=== PATIENT | female | born 1960 | race Caucasian/White ===

== ENCOUNTER 2022-05-09 16:12 | Emergency (ER) | payer OTHER ==
[2022-05-09 16:26] VITALS: TEMP 98.1
[2022-05-09] MEDS ORDERED: ASPIRIN 81 MG PO STA (16:38)
[2022-05-09 17:00] LABS: Basophils % (A) 1 %; Eosinophils # (A) 0.2 k/uL (0-0.7); Eosinophils % (A) 3 %; HGB 13.9 gm/dL (11.4-16.0); Lymphocytes # (A) 1.9 k/uL (1.0-4.8); Lymphocytes % (A) 27 %; MCH 30.4 pg (25.0-35.0); MCHC 32.4 g/dL (31.0-37.0); Mean Platelet Volume 7.7; Monocytes # (A) 0.3 k/uL (0-1.0); Monocytes % (A) 4 %; Neutrophils # (A) 4.4 k/uL (1.3-7.7); Neutrophils % (A) 63 %; Platelet Count 181 k/uL (150-450); RBC 4.57 m/uL (3.80-5.40); RDW 13.5 % (11.5-15.5); WBC 6.9 k/uL (3.8-10.6)
[2022-05-09 17:08] LABS: INR 1.2 (<1.2); Partial Thromboplastin Time 26.6 sec (22.0-30.0); Prothrombin Time 12.3 sec (9.0-12.0)
[2022-05-09 17:13] VITALS: PULSE 64
--- NOTE | 2022-05-09 17:14 | ED ---
General Adult HPI - General Chief complaint: Chest Pain Stated complaint: pain under rt breast Time Seen by Provider: 05/09/22 16:38 Source: patient, family, RN notes reviewed Mode of arrival: ambulatory Limitations: no limitations - History of Present Illness Initial comments: Patient is a pleasant 62-year-old female presenting to the emergency department with concern with discomfort under her right chest. Discomfort is mild. Discomfort does increase with deep breaths. No dyspnea. Discomfort is somewhat sharp. No history of similar symptoms previously. Patient recently was diagnosed with venous thrombosis of her right leg. Patient states she was told it was near a deep vein so they did start Xarelto on her. Patient has been on this now for 4 days, 15 mg twice daily. Discomfort is unchanged right upper leg. No calf pain. No abdominal pain. - Related Data Allergies Allergy/AdvReac Type Severity Reaction Status Date / Time No Known Allergies Allergy Verified 05/09/22 16:26 Review of Systems ROS Statement: Those systems with pertinent positive or pertinent negative responses have been documented in the HPI. ROS Other: All systems not noted in ROS Statement are negative. Constitutional: Denies: fever Eyes: Denies: eye pain ENT: Denies: ear pain Respiratory: Denies: cough Cardiovascular: Reports: as per HPI, chest pain Endocrine: Denies: fatigue Gastrointestinal: Denies: abdominal pain Genitourinary: Denies: dysuria Musculoskeletal: Denies: back pain Skin: Denies: rash Neurological: Denies: weakness Past Medical History Past Medical History: Deep Vein Thrombosis (DVT) History of Any Multi-Drug Resistant Organisms: None Reported Past Surgical History: Hysterectomy, Orthopedic Surgery Past Psychological History: No Psychological Hx Reported Smoking Status: Never smoker Past Alcohol Use History: Daily Past Drug Use History: None Reported General Exam Limitations: no limitations General appearance: alert, in no apparent distress Head exam: Present: normocephalic Eye exam: Present: normal appearance Neck exam: Present: normal inspection Respiratory exam: Present: normal lung sounds bilaterally, chest wall tenderness (Mild discomfort right chest wall under the breast) Cardiovascular Exam: Present: regular rate, normal rhythm Expanded Peripheral pulses: 2+: Dorsalis Pedis (R), Dorsalis Pedis (L) GI/Abdominal exam: Present: soft. Absent: tenderness Extremities exam: Present: other (Mild tenderness right medial and posterior thigh). Absent: pedal edema, calf tenderness Neurological exam: Present: alert Psychiatric exam: Present: normal affect, normal mood Skin exam: Present: normal color Course Vital Signs 05/09/22 05/09/22 16:23 17:12 Temperature 98.1 F Pulse Rate 68 64 Respiratory 18 18 Rate Blood Pressure 148/92 122/67 O2 Sat by Pulse 96 96 Oximetry EKG Findings - EKG Comments: EKG Findings:: Sinus rhythm 65. MO 164. QRS 160. QT 410. QTc 42. Normal axis. Right bundle branch block. Nonspecific T waves. Medical Decision Making - Medical Decision Making Patient reevaluated and now symptom-free. Patient updated on results. Discussion had with patient regarding repeat cardiac testing however patient refuses stating she is not worried about any cardiac problems. Patient symptoms are not consistent with cardiac problems and agreed patient can be safely discharged with follow-up with her doctor. She is advised to continue her Xarelto. - Lab Data Result diagrams: 05/09/22 16:55 05/09/22 16:55 Lab Results 05/09/22 05/09/22 05/09/22 Range/Units 16:55 16:55 16:55 WBC 6.9 (3.8-10.6) k/uL RBC 4.57 (3.80-5.40) m/uL Hgb 13.9 (11.4-16.0) gm/dL Hct 43.0 (34.0-46.0) % MCV 94.0 (80.0-100.0) fL MCH 30.4 (25.0-35.0) pg MCHC 32.4 (31.0-37.0) g/dL RDW 13.5 (11.5-15.5) % Plt Count 181 (150-450) k/uL MPV 7.7 Neutrophils % 63 % Lymphocytes % 27 % Monocytes % 4 % Eosinophils % 3 % Basophils % 1 % Neutrophils # 4.4 (1.3-7.7) k/uL Lymphocytes # 1.9 (1.0-4.8) k/uL Monocytes # 0.3 (0-1.0) k/uL Eosinophils # 0.2 (0-0.7) k/uL Basophils # 0.0 (0-0.2) k/uL PT 12.3 H (9.0-12.0) sec INR 1.2 H (<1.2) APTT 26.6 (22.0-30.0) sec Sodium 139 (137-145) mmol/L Potassium 3.9 (3.5-5.1) mmol/L Chloride 108 H (98-107) mmol/L Carbon Dioxide 25 (22-30) mmol/L Anion Gap 6 mmol/L BUN 23 H (7-17) mg/dL Creatinine 0.87 (0.52-1.04) mg/dL Est GFR (CKD-EPI)AfAm 82 (>60 ml/min/1.73 sqM) Est GFR (CKD-EPI)NonAf 71 (>60 ml/min/1.73 sqM) Glucose 99 (74-99) mg/dL Calcium 8.8 (8.4-10.2) mg/dL Magnesium 2.0 (1.6-2.3) mg/dL Total Bilirubin 0.4 (0.2-1.3) mg/dL AST 35 (14-36) U/L ALT 19 (4-34) U/L Alkaline Phosphatase 54 (38-126) U/L Troponin I (0.000-0.034) ng/mL Total Protein 6.4 (6.3-8.2) g/dL Albumin 4.0 (3.5-5.0) g/dL Amylase 78 (30-110) U/L Lipase 100 (23-300) U/L 05/09/22 Range/Units 16:55 WBC (3.8-10.6) k/uL RBC (3.80-5.40) m/uL Hgb (11.4-16.0) gm/dL Hct (34.0-46.0) % MCV (80.0-100.0) fL MCH (25.0-35.0) pg MCHC (31.0-37.0) g/dL RDW (11.5-15.5) % Plt Count (150-450) k/uL MPV Neutrophils % % Lymphocytes % % Monocytes % % Eosinophils % % Basophils % % Neutrophils # (1.3-7.7) k/uL Lymphocytes # (1.0-4.8) k/uL Monocytes # (0-1.0) k/uL Eosinophils # (0-0.7) k/uL Basophils # (0-0.2) k/uL PT (9.0-12.0) sec INR (<1.2) APTT (22.0-30.0) sec Sodium (137-145) mmol/L Potassium (3.5-5.1) mmol/L Chloride (98-107) mmol/L Carbon Dioxide (22-30) mmol/L Anion Gap mmol/L BUN (7-17) mg/dL Creatinine (0.52-1.04) mg/dL Est GFR (CKD-EPI)AfAm (>60 ml/min/1.73 sqM) Est GFR (CKD-EPI)NonAf (>60 ml/min/1.73 sqM) Glucose (74-99) mg/dL Calcium (8.4-10.2) mg/dL Magnesium (1.6-2.3) mg/dL Total Bilirubin (0.2-1.3) mg/dL AST (14-36) U/L ALT (4-34) U/L Alkaline Phosphatase (38-126) U/L Troponin I <0.012 (0.000-0.034) ng/mL Total Protein (6.3-8.2) g/dL Albumin (3.5-5.0) g/dL Amylase (30-110) U/L Lipase (23-300) U/L - Radiology Data Radiology results: report reviewed (CT chest negative for pulmonary embolism) Disposition Clinical Impression: Chest wall pain Disposition: HOME SELF-CARE Condition: Stable Instructions (If sedation given, give patient instructions): Chest Wall Pain (ED) Additional Instructions: Please follow-up with her vascular doctor and primary care physician in the next one to 2 days for recheck. Return for chest pain, difficulty breathing, worsening or changing symptoms or other concerns. Continue Xarelto as directed. Is patient prescribed a controlled substance at d/c from ED?: No Referrals: Anita France MD [Primary Care Provider] - 1-2 days Time of Disposition: 18:19
[2022-05-09 17:22] LABS: Calcium 8.8 mg/dL (8.4-10.2); Potassium 3.9 mmol/L (3.5-5.1); Total Bilirubin 0.4 mg/dL (0.2-1.3); Total Protein 6.4 g/dL (6.3-8.2)
--- NOTE | 2022-05-09 17:41 | CT ---
EXAMINATION TYPE: CT angio chest DATE OF EXAM: 05/09/2022 COMPARISON: None HISTORY: pain under right breast CT DLP: 219.5 mGycm Automated exposure control for dose reduction was used. CONTRAST: Performed with IV Contrast, patient injected with 75cc mL of Isovue 370. Images obtained from the thoracic inlet to the diaphragm with the IV contrast. There are Three-D post processed images. The lungs are clear of consolidation. No evidence of pleural effusion or pneumothorax. There is no me diastinal adenopathy. There are no hilar masses. Heart size is normal. No pericardial effusion. There are 1.5 cm rounded hypodensities in the superior posterior right lobe of the liver. These are probab ly cysts. Thoracic aorta is intact. No aneurysm or dissection. There is normal contrast opacification of the pulmonary arteries. No filling defect. The thoracic spine is intact. No compression fracture. Sternum is intact. The upper abdominal soft ti ssues are intact. IMPRESSION: Negative exam. No evidence of pulmonary embolism. Minimal subsegmental atelectasis at the lung bases.
[2022-05-09 18:19] VITALS: BP 117/62; RESP 21
== END 2022-05-09 18:40 | disposition home or self-care (01) ==
LOC: EC 16:12
DX: R07.89 Other chest pain (principal)
CPT/HCPCS: 36415; 93005; 80053; 82150; 83690; 83735; 84484; 85025; 85610; 85730; 71275; 99285; Q9967